=== PATIENT | male | born 1965 | race Caucasian/White ===

== ENCOUNTER 2017-06-02 12:30 | Outpatient (CLI) | payer MEDICARE | END 2017-06-02 12:31 | disposition home or self-care (01) | LOC: NAV LABSP 12:30 | PROVIDERS: ATTEND Family Medicine | DX: R19.7 Diarrhea, unspecified (principal) | CPT/HCPCS: 87324; 87449 ==

== ENCOUNTER 2017-06-09 17:30 | Outpatient (CLI) | payer MEDICARE | END 2017-06-09 17:31 | disposition home or self-care (01) | LOC: NAV LABSP 17:30 | PROVIDERS: ATTEND Family Medicine | DX: R19.7 Diarrhea, unspecified (principal) | CPT/HCPCS: 87324; 87449 ==

== ENCOUNTER 2017-06-12 10:45 | Outpatient (CLI) | payer MEDICARE | END 2017-06-12 10:46 | disposition home or self-care (01) | LOC: NAV LABSP 10:45 | PROVIDERS: ATTEND Family Medicine | DX: A04.7 Enterocolitis due to Clostridium difficile (principal) | CPT/HCPCS: 87324; 87449 ==

== ENCOUNTER 2018-04-11 16:06 | Emergency (ER) | payer MEDICARE, MEDICAID ==
[2018-04-11 17:00] LABS: #Basophils 0.1 thou/uL (0.0-0.2); #Eosinphils 0.2 thou/uL (0.0-0.7); #Lymphocytes 1.3 thou/uL (1.20-3.40); #Monocytes 0.6 thou/uL (0.11-0.59); #Neutrophils 4.6 thou/uL (1.40-6.50); %Basophils 1.7 % (0.0-1.0); %Eosinophils 2.9 % (0.0-10.0); %Monocytes 9.2 % (0.0-10.0); %Neutrophils 67.3 % (42.0-75.0); Hemoglobin 11.9 g/dL (14.0-18.0); Mean Corpuscular HGB CONC 35.1 g/dL (32.0-36.0); Mean Corpuscular Hemoglobin 29.6 pg (27.0-31.0); Mean Corpuscular Volume 84.4 fL (78.0-98.0); Mean Platelet Volume 7.1 fL (7.4-10.4); Platelet Count 245 thou/uL (130-400); RBC Distribution Width 11.8 % (11.5-14.5); Red Blood Cell (RBC) Count 4.03 mill/uL (4.70-6.10); White Blood Cell (WBC) Count 6.8 thou/uL (4.8-10.8)
[2018-04-11 17:03] LABS: Acetaminophen Less than 6.0 mcg/mL (10.0-30.0); Alcohol Less than 10 mg/dL (Less than 10); CK (CPK) 163 U/L (30-200); Salicylate Less than 8.0 mg/dL (15.0-30.0)
[2018-04-11 17:05] LABS: ALT (SGPT) 13 U/L (8-55); AST (SGOT) 14 U/L (5-34); Albumin 3.9 g/dL (3.5-5.0); Alkaline Phosphatase 89 U/L (40-150); Anion Gap 18 mmol/L (10-20); BUN (Urea Nitrogen) 37 mg/dL (8.4-25.7); Bilirubin, Total 0.9 mg/dL (0.2-1.2); Calc. Creatinine Clearance 0 mL/min (70-130); Calcium 9.4 mg/dL (7.8-10.44); Carbon Dioxide 26 mmol/L (22-29); Chloride 93 mmol/L (98-107); Estimated GFR-MDRD 15; Globulin 3.5 g/dL (2.4-3.5); Glucose 357 mg/dL (70-105); Potassium 3.6 mmol/L (3.5-5.1); Protein, Total 7.4 g/dL (6.0-8.3); Sodium 133 mmol/L (136-145)
== END 2018-04-11 19:50 ==
LOC: NAV ERS 16:06
DX: R45.4 Irritability and anger (principal); E78.5 Hyperlipidemia, unspecified; E10.22 Type 1 diabetes mellitus with diabetic chronic kidney disease; I12.0 Hypertensive chronic kidney disease with stage 5 chronic kidney disease or end stage renal disease; N18.6 End stage renal disease; Z79.899 Other long term (current) drug therapy
CPT/HCPCS: 80053; 80307; 82550; 84443; 85025; 99285